=== PATIENT | female | born 1985 | race Asian ===

== ENCOUNTER 2018-09-18 22:45 | Emergency (ER) | payer BC, OTHER ==
[~2018-09-18] VITALS: Ht 160 cm; Wt 71.9 kg
[2018-09-18 22:56] VITALS: BP 127/80; PULSE 80; Ht 160 cm; Wt 71.9 kg
[2018-09-18] MEDS ORDERED: DIPH25CA6 PO (23:19)
[2018-09-18] MEDS ORDERED: PRED20TA PO (23:19)
--- NOTE | 2018-09-18 23:20 | ERD ---
ER Documentation Chief Complaint Chief Complaint facial swelling, itchy rash all over body x 1 day worse X 2 hrs. HPI 32-year-old female presents for allergic reaction times 1 day. She states that she has itchiness and swelling over the face and bilateral ears and back.. She denies fevers or chills. She takes Thais for other allergies. She has had prior similar symptoms in the past and was given prednisone with relief. Otherwise denies significant past medical history. ROS All systems reviewed and are negative except as per history of present illness. Medications Home Meds Active Scripts Diphenhydramine Hcl* (Diphenhydramine Hcl*) 25 Mg Capsule, 25 MG PO Q6 PRN for ITCHING, #30 CAP Prov:DAWNA TOBAR DO 09/18/18 Prednisone* (Prednisone*) 20 Mg Tab, 40 MG PO DAILY for allergic reaction for 4 Days, #5 TAB take 40mg day 1, 30mg day 2, 20mg day 3, 10mg day 4 Prov:DAWNA TOBAR 09/18/18 Allergies Allergies: Coded Allergies: Penicillins (Verified Allergy, Unknown, 09/18/18) erythromycin base (Verified Allergy, Unknown, 09/18/18) PMhx/Soc Medical and Surgical Hx: pt denies Medical Hx, pt denies Surgical Hx Hx Alcohol Use: No Hx Substance Use: No Hx Tobacco Use: No Smoking Status: Never smoker Physical Exam Vitals Vital Signs Date Temp Pulse Resp B/P (MAP) Pulse Ox O2 O2 Flow FiO2 Time Delivery Rate 09/18/18 18 99 Room Air 23:34 09/18/18 99.1 80 18 127/80 99 22:56 (96) Physical Exam Const: No acute distress Resp: Clear to auscultation bilaterally Cardio: Regular rate and rhythm, no murmurs Abd: Soft, non tender, non distended. Normal bowel sounds Skin: Erythematous maculopapular rash noted over the face and bilateral ears and back. Back: No midline or flank tenderness Ext: No cyanosis, or edema Neur: Awake and alert Psych: Normal Mood and Affect Procedures/MDM Medical Decision Making: Differential diagnosis includes but not limited to allergic reaction, derma titis, cellulitis Patient appeared well on physical exam. There is a diffuse macular papular rash over the face bilateral ears and back. Symptoms consistent with allergic reaction. Patient was speaking full sentences. There is no tongue swelling. Lungs were clear to all station bilaterally Prescription(s): Patient given prescription for supportive medication(s) including prednisone and Benadryl. Patient advised to follow up with PCP in 1-2 days. Patient advised to return to ED for new or worsening symptoms. Patient stable on discharge from the ED. Disclaimer: Inadvertent spelling and grammatical errors are likely due to EH R/dictation software use and do not reflect on the overall quality of patient care. Also, please note that the electronic time recorded on this note does not necessarily reflect the actual time of the patient encounter. Departure Diagnosis: Primary Impression: Allergic reaction Encounter type: initial encounter Qualified Codes: T78.40XA - Allergy, unspecified, initial encounter Condition: Fair Patient Instructions: First Aid: Allergic Reactions Referrals: [facility] YOU HAVE RECEIVED A MEDICAL SCREENING EXAM AND THE RESULTS INDICATE THAT YOU DO NOT HAVE A CONDITION THAT REQUIRES URGENT TREATMENT IN THE EMERGENCY DEPARTMENT. FURTHER EVALUATION AND TREATMENT OF YOUR CONDITION CAN WAIT UNTIL YOU ARE SEEN IN YOUR DOCTORS OFFICE WITHIN THE NEXT 1-2 DAYS. IT IS YOUR RESPONSIBILITY TO MAKE AN APPOINTMENT FOR FOLOW-UP CARE. IF YOU HAVE A PRIMARY DOCTOR --you should call your primary doctor and schedule an appointment IF YOU DO NOT HAVE A PRIMARY DOCTOR YOU CAN CALL OUR PHYSICIAN REFERRAL HOTLINE AT IF YOU CAN NOT AFFORD TO SEE A PHYSICIAN YOU CAN CHOSE FROM THE FOLLOWING [facility] [address] [facility]. [facility] [address] [facility]. [facility] [address] [facility] [facility] [address] [facility]. [facility] [address] [facility]. [facility]. [address] Additional Instructions: Call your primary care doctor TOMORROW for an appointment during the next 1-2 days.See the doctor sooner or return here if your condition worsens before your appointment time. DAWNA TOBAR DO Sep 18, 2018 23:20
[2018-09-18 23:34] VITALS: RESP 18
== END 2018-09-18 23:33 | disposition home or self-care (01) ==
LOC: FTE 22:45
DX: R21 Rash and other nonspecific skin eruption (principal)
CPT/HCPCS: 99283

== ENCOUNTER 2018-12-27 23:13 | Emergency (ER) | payer BC ==
[~2018-12-27] VITALS: Ht 160 cm; Wt 70.4 kg
[~2018-12-27 23:13] MED LIST: DIPH25CA6 PO; PRED20TA PO
[2018-12-27 23:19] VITALS: Ht 160 cm; Wt 70.4 kg
[2018-12-28] MEDS ORDERED: KETOROLAC 60 MG INJ IM STA (01:16)
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
[2018-12-28] MEDS ORDERED: IBUP800T48 PO (01:35)
[2018-12-28] MEDS ORDERED: METH500T PO (01:35)
[2018-12-28 01:51] VITALS: BP 117/75; PULSE 68; RESP 18
== END 2018-12-28 01:52 | disposition home or self-care (01) ==
LOC: FTE 23:13
DX: M62.830 Muscle spasm of back (principal)
CPT/HCPCS: 81025; 96372; 99284; J1885